=== PATIENT | male | born 1990 | race African-American/Black ===

== ENCOUNTER 2023-08-11 01:34 | Emergency (ER) | payer SELFPAY ==
[2023-08-11 01:47] VITALS: BP 114/73; PULSE 65; RESP 18; TEMP 98.3; BMI 20.9
[2023-08-11] MEDS ORDERED: KETOROLAC TROMETHAMINE 30 MG/1 ML VIAL ONE (02:10)
[2023-08-11] MEDS: KETOROLAC TROMETHAMINE 30 MG/1 ML VIAL IM ONE (02:16)
[2023-08-11] MEDS ORDERED: DEXAMETHASONE 4 MG TABLET (FP) ONE (02:17)
[2023-08-11] MEDS: DEXAMETHASONE 4 MG TABLET (FP) PO ONE (02:17)
[2023-08-11 02:36] LABS: THROAT:GRP A STREP NOT DETECTED (NOTDETECTED)
== END 2023-08-11 02:58 | disposition home or self-care (01) ==
LOC: JER 01:34
PROC: 3E0233Z Introduction of Anti-inflammatory into Muscle, Percutaneous Approach (ICD-10-PCS; principal; 2023-08-11)
DX: J02.8 Acute pharyngitis due to other specified organisms (principal); R10.10 Upper abdominal pain, unspecified; R05.9 Cough, unspecified; R51.9 Headache, unspecified; R11.2 Nausea with vomiting, unspecified; R50.9 Fever, unspecified; Z20.822 Contact with and (suspected) exposure to COVID-19
CPT/HCPCS: 0241U-QW; 87651; 99284-25

== ENCOUNTER 2023-12-24 23:19 | Emergency (ER) | payer OTHER ==
[2023-12-24 23:25] VITALS: BP 118/50; PULSE 68; RESP 18; TEMP 98.4; BMI 21.5
[2023-12-24] MEDS ORDERED: TETRACAINE 0.5% OPHTH SOLN 2 ML BOTTLE ONE (23:50)
[2023-12-24] MEDS ORDERED: FLUORESCEIN NA 1 EA STRIP ONE (23:52)
[2023-12-25] MEDS: FLUORESCEIN NA 1 EA STRIP OD ONE (00:07)
[2023-12-25] MEDS: TETRACAINE 0.5% HCL 0.6ML DROPPER.BOTTLE OD ONE (00:07)
[2023-12-25 01:12] LABS: HIV INTERPRETATION NEGATIVE (NEGATIVE)
== END 2023-12-25 00:43 | disposition home or self-care (01) ==
LOC: JER 23:19
DX: H57.12 Ocular pain, left eye (principal); W21.00XA Struck by hit or thrown ball, unspecified type, initial encounter; Y93.64 Activity, baseball
CPT/HCPCS: 36415; 86803; 87389; 99283-25

== ENCOUNTER 2024-01-01 12:01 | Emergency (ER) | payer SELFPAY ==
[2024-01-01 12:11] VITALS: BP 117/69; PULSE 77; RESP 18; TEMP 98.1; BMI 21.4
[2024-01-01 12:36] LABS: EPI CELLS 6 /uL (0-25.1); HYALINE CASTS 1 /uL (0-3.1); URINE APPEARANCE CLEAR; URINE BACTERIA 10 /uL (0-1359); URINE BILIRUBIN NEGATIVE (NEGATIVE); URINE COLOR YELLOW; URINE GLUCOSE (UA) NEGATIVE (NEGATIVE); URINE KETONE TRACE (NEGATIVE); URINE LEUK ESTERASE TRACE (NEGATIVE); URINE NITRITE NEGATIVE (NEGATIVE); URINE PROTEIN NEGATIVE (NEGATIVE); URINE RBC 7 /uL (0-23.9); URINE WBC 74 /uL (0-25.8)
[2024-01-01] MEDS ORDERED: DOXYCYCLINE HYCLATE 100 MG CAPSULE PO ONE (12:48)
[2024-01-01] MEDS ORDERED: LIDOCAINE HCL 1%, 10 MG/ML (20ML VIAL) ONE (12:53)
[2024-01-01] MEDS: DOXYCYCLINE HYCLATE 100 MG CAPSULE PO ONE (13:05)
[2024-01-01] MEDS: LIDOCAINE HCL 2% (20ML MULTI-DOSE VIAL) SQ ONE (13:06)
== END 2024-01-01 13:06 | disposition home or self-care (01) ==
LOC: JER 12:01
DX: R30.0 Dysuria (principal); Z20.2 Contact with and (suspected) exposure to infections with a predominantly sexual mode of transmission
CPT/HCPCS: 36415; 81003; 87086; 87491; 87591; 87661; 99284-25